=== PATIENT | female | born 1960 | race Hispanic/Latino ===

== ENCOUNTER → 2021-10-02 | Outpatient (CLI) | payer BC ==
[~2021-10-02] MED LIST: NORCO 7.5-3251 EACH PO; SOMA350 MG PO
== END ==
LOC: MAMMO 11:05
PROVIDERS: ATTEND Internal Medicine
DX: R10.2 Pelvic and perineal pain (principal)
CPT/HCPCS: 76830; 76856; 77067

== ENCOUNTER 2022-07-20 21:07 | Emergency (ER) | payer OTHER ==
[~2022-07-20] VITALS: Ht 162.6 cm; Wt 59.0 kg
[2022-07-20 21:18] VITALS: O2SAT 100
[2022-07-20] MEDS ORDERED: DOXYCYCLINE HY100 MG PO (21:51)
== END 2022-07-20 22:18 | disposition home or self-care (01) ==
LOC: ER 21:26
DX: S40.862A Insect bite (nonvenomous) of left upper arm, initial encounter (principal); S40.861A Insect bite (nonvenomous) of right upper arm, initial encounter; S80.862A Insect bite (nonvenomous), left lower leg, initial encounter; L08.9 Local infection of the skin and subcutaneous tissue, unspecified; W57.XXXA Bitten or stung by nonvenomous insect and other nonvenomous arthropods, initial encounter; Y92.89 Other specified places as the place of occurrence of the external cause; J44.9 Chronic obstructive pulmonary disease, unspecified; D64.9 Anemia, unspecified; E78.00 Pure hypercholesterolemia, unspecified; M81.0 Age-related osteoporosis without current pathological fracture; F17.210 Nicotine dependence, cigarettes, uncomplicated
CPT/HCPCS: 99283

== ENCOUNTER 2023-09-20 23:55 | Emergency (ER) | payer BC, OTHER ==
[~2023-09-20] VITALS: Ht 162.6 cm; Wt 49.9 kg
[~2023-09-20 23:55] MED LIST changes: +AUGMENTIN 500-1 EACH PO; +CEFTRIAXONE1 GM IV; +DOXYCYCLINE HY100 MG PO; +GABAPENTIN300 MG PO; +MELATONIN3 MG PO; +MUPIROCIN22 GM TOP; +ONDANSETRON ODT4 MG PO
[2023-09-21] MEDS ORDERED: HEPARIN SOD (PORCINE) 5,000 UNIT/ML VIAL IV ONE (02:00)
[2023-09-21] MEDS ORDERED: HEPARIN SOD/DEXTROSE 5% 25000 UNIT/250 ML BAG IV SCH ×2 (02:00→02:30)
[2023-09-21 02:28] VITALS: TEMP 98.4
[2023-09-21] MEDS ORDERED: HEPARIN 25,000 UNIT/D5W 250ML 250 ML IV ONE (02:35)
[2023-09-21] MEDS: ONDANSETRON HCL INJ 2MG/ML 2ML 2 MG/ML VIAL IV STA (02:42)
[2023-09-21] MEDS: Morphine 2mg Syringe 2 MG/ML SYR IV ONE (02:53)
[2023-09-21 02:58] LABS: BASOPHILS # (AUTO) 0.1 (0.0-0.1); BASOPHILS % 0.5 % (0.0-1.0); EOSINOPHILS # (AUTO) 0.3 (0.0-0.4); EOSINOPHILS % 2.7 % (0.0-6.0); HEMATOCRIT 28.4 % (34.2-44.1); HEMOGLOBIN 8.7 g/dL (12.0-16.0); LYMPHOCYTES # (AUTO) 2.7 (1.0-3.2); LYMPHOCYTES % 23.1 % (18.0-39.1); MEAN CORPUSCULAR HEMOGLOBIN 26.4 pg (28-32); MEAN CORPUSCULAR HGB CONC 30.6 g/dL (31-35); MEAN CORPUSCULAR VOLUME 86.3 fL (81-99); MONOCYTES # (AUTO) 0.5 (0.2-0.8); NEUTROPHILS # (AUTO) 8.2 (2.1-6.9); NEUTROPHILS % 69.2 % (38.7-80.0); PLATELET COUNT 363 x10e3/uL (140-360); RED BLOOD COUNT 3.29 x10e6/uL (3.6-5.1); WHITE BLOOD COUNT 11.86 x10e3/uL (4.8-10.8)
[2023-09-21] MEDS: HEPARIN SOD (PORCINE) 5,000 UNIT/ML VIAL IV ONE (02:58)
[2023-09-21] MEDS: HEPARIN 25,000 UNIT/D5W 250ML 250 ML IV SCH (02:59)
[2023-09-21 03:12] LABS: CALCIUM 8.8 mg/dL (8.4-10.2); CREATININE, SERUM 0.63 mg/dL (0.57-1.11)
[2023-09-21 03:13] LABS: INR 0.89; PROTHROMBIN TIME 12.7 seconds (11.9-14.5)
[2023-09-21 03:14] LABS: PARTIAL THROMBOPLASTIN TIME 31.1 seconds (23.8-35.5)
[2023-09-21 03:15] VITALS: PULSE 82; RESP 14
[2023-09-21 03:59] VITALS: BP 120/46; PULSE 88; RESP 17; TEMP 98.3; O2SAT 97
== END 2023-09-21 05:04 | disposition other institution (70) ==
LOC: ER 23:58
DX: R20.2 Paresthesia of skin (principal); I74.3 Embolism and thrombosis of arteries of the lower extremities; J44.9 Chronic obstructive pulmonary disease, unspecified; E78.00 Pure hypercholesterolemia, unspecified; F41.9 Anxiety disorder, unspecified; M81.0 Age-related osteoporosis without current pathological fracture; M19.09 Primary osteoarthritis, other specified site; F17.210 Nicotine dependence, cigarettes, uncomplicated
CPT/HCPCS: 36415; 80048; 85025; 85610; 85730; 93925; 99284; J1644; J2270; J2405